=== PATIENT | male | born 1945 | race Caucasian/White ===

== ENCOUNTER 2024-06-06 00:50 | Inpatient (IN) | payer MEDICARE, OTHER ==
[~2024-06-06] VITALS: Ht 172.7 cm; Wt 70.3 kg
[2024-06-06] MEDS ORDERED: AMLO2.5T4 PO (01:25)
[2024-06-06] MEDS ORDERED: MULT-594 PO (01:25)
[2024-06-06] MEDS ORDERED: CYAN100T9 PO (01:25)
[2024-06-06] MEDS ORDERED: ZINC1CAP2 PO (01:25)
[2024-06-06] MEDS ORDERED: CHOL2000 PO (01:25)
[2024-06-06] MEDS ORDERED: ASPI81TA31 PO (01:25)
[2024-06-06] MEDS ORDERED: ASCO500C18 PO (01:25)
[2024-06-06] MEDS ORDERED: ONDA-104 PO (01:25)
[2024-06-06 02:00] LABS: BASOPHILS % (AUTO) 0.2 % (0.0-2.0); DIFFERENTIAL COMMENT 1; EOSINOPHILS # (AUTO) 0.2 K/uL (0.0-0.7); EOSINOPHILS % (AUTO) 1.2 % (0.0-7.0); HEMATOCRIT 33.7 % (36.7-47.1); HEMOGLOBIN 11.2 g/dL (12.5-16.3); LYMPHOCYTES # (AUTO) 0.9 K/uL (0.8-4.8); LYMPHOCYTES % (AUTO) 5.4 % (20.5-51.5); MEAN CORPUSCULAR HGB CONC 33 g/dL (32.5-36.3); MEAN CORPUSCULAR VOLUME 87.6 fL (73.0-96.2); MONOCYTES # (AUTO) 0.9 K/uL (0.1-1.30); MONOCYTES % (AUTO) 5.7 % (0.0-11.0); NEUTROPHILS # (AUTO) 14.4 K/uL (1.8-8.9); NEUTROPHILS % (AUTO) 87.5 % (38.5-71.5); PLATELET COUNT (AUTO) 244 K/uL (152-348); RED BLOOD CELL COUNT(AUTO) 3.85 MIL/uL (4.06-5.63); WHITE BLOOD COUNT (AUTO) 16.5 K/uL (3.6-10.2)
[2024-06-06 02:07] LABS: CARBON DIOXIDE 30 mmol/L (21-32); CHLORIDE 93 mmol/L (98-107); CREATININE 1.3 mg/dL (0.6-1.3); GLUCOSE 288 mg/dL (74-106); POTASSIUM 5.2 mmol/L (3.5-5.1); SODIUM SERUM 129 mmol/L (136-145); UREA NITROGEN, BLOOD 25 mg/dL (7-18)
[2024-06-06 02:23] LABS: ALANINE AMINOTRANSFERASE 29 U/L (16-63); ALBUMIN 3.3 g/dL (3.4-5.0); ALKALINE PHOSPHATASE 67 U/L (50-136); ASPARTATE AMINOTRANSFERASE 13 U/L (15-37); BILIRUBIN,DIRECT 0.2 mg/dL (0.0-0.2); BILIRUBIN,TOTAL 0.6 mg/dL (0.2-1.0); NT-PRO BNP 1487 pg/mL (0-125); TOTAL PROTEIN, SERUM 7.9 g/dL (6.4-8.2)
[2024-06-06 02:30] LABS: CALCIUM 9.4 mg/dL (8.5-10.1)
[2024-06-06 03:15] VITALS: BP 164/68
[2024-06-06] MEDS: NITROGLYCERIN OINT 1 GM PACKET TP ONE (03:15)
[2024-06-06] MEDS ORDERED: ACETAMINOPHEN 500 MG TABLET ONE (03:15)
[2024-06-06] MEDS ORDERED: NITROGLYCERIN OINT 1 GM PACKET TP ONE (03:15)
[2024-06-06] MEDS: ACETAMINOPHEN 500 MG TABLET PO ONE (03:15)
[2024-06-06] MEDS ORDERED: SACU1TAB PO (03:16)
[2024-06-06] MEDS ORDERED: CLOP75TA33 PO (03:16)
[2024-06-06] MEDS ORDERED: AMIO200T5 PO (03:16)
[2024-06-06] MEDS ORDERED: APIX5TAB PO (03:16)
[2024-06-06] MEDS ORDERED: FURO40TA5 PO (03:16)
[2024-06-06] MEDS ORDERED: POTA20TA83 PO (03:16)
[2024-06-06] MEDS ORDERED: OSEL75CA18 PO (03:16)
[2024-06-06] MEDS ORDERED: CARV3.122 PO (03:16)
[2024-06-06] MEDS: FUROSEMIDE 40 MG/4 ML VIAL IV ONE (03:30)
[2024-06-06] MEDS ORDERED: ACETAMINOPHEN 325 MG TABLET PO PRN (03:30)
[2024-06-06] MEDS ORDERED: MAGNESIUM HYDROXIDE 30 ML LIQUID UDC PO PRN (03:30)
[2024-06-06] MEDS ORDERED: ONDANSETRON 4 MG/2 ML VIAL IV PRN (03:30)
[2024-06-06] MEDS ORDERED: REMEDY ESSENTIAL ZINC PASTE 113 GM TP PRN (03:30)
[2024-06-06] MEDS ORDERED: NITROGLYCERIN OINT 1 GM PACKET TP PRN ×2 (03:30→05:45)
[2024-06-06] MEDS ORDERED: PANTOPRAZOLE SODIUM 40 MG TABLET.DR PO ONE (07:58)
[2024-06-06] MEDS: PANTOPRAZOLE SODIUM 40 MG TABLET.DR PO SCH (08:00)
[2024-06-06 08:03] LABS: BASOPHILS % (AUTO) 0.2 % (0.0-2.0); EOSINOPHILS % (AUTO) 0.4 % (0.0-7.0); HEMATOCRIT 33.8 % (36.7-47.1); HEMOGLOBIN 11.4 g/dL (12.5-16.3); LYMPHOCYTES # (AUTO) 1.2 K/uL (0.8-4.8); LYMPHOCYTES % (AUTO) 11.5 % (20.5-51.5); MEAN CORPUSCULAR HEMOGLOBIN 29.5 uug (23.8-33.4); MEAN CORPUSCULAR HGB CONC 34 g/dL (32.5-36.3); MEAN CORPUSCULAR VOLUME 87.4 fL (73.0-96.2); MONOCYTES % (AUTO) 9.5 % (0.0-11.0); NEUTROPHILS % (AUTO) 78.4 % (38.5-71.5); PLATELET COUNT (AUTO) 253 K/uL (152-348); RED BLOOD CELL COUNT(AUTO) 3.87 MIL/uL (4.06-5.63); WHITE BLOOD COUNT (AUTO) 10.2 K/uL (3.6-10.2)
[2024-06-06 08:08] LABS: DIFFERENTIAL COMMENT 1
[2024-06-06 08:26] LABS: CALCIUM 9.1 mg/dL (8.5-10.1); CARBON DIOXIDE 30 mmol/L (21-32); CHLORIDE 97 mmol/L (98-107); CREATININE 1.2 mg/dL (0.6-1.3); GLUCOSE 177 mg/dL (74-106); MAGNESIUM 2.2 mg/dL (1.8-2.4); NT-PRO BNP 2131 pg/mL (0-125); PHOSPHOROUS 4.4 mg/dL (2.5-4.9); POTASSIUM 4.3 mmol/L (3.5-5.1); SODIUM SERUM 134 mmol/L (136-145); UREA NITROGEN, BLOOD 21 mg/dL (7-18)
[2024-06-06] MEDS ORDERED: FUROSEMIDE 20 MG/2 ML VIAL ONE (09:17)
[2024-06-06] MEDS: FUROSEMIDE 20 MG/2 ML VIAL IV SCH (09:25)
[2024-06-06 10:13] VITALS: O2SAT 97
== END 2024-06-06 14:30 | DRG 291 ==
LOC: EDSEX 00:50 → ER 00:50 → MEDSURG3 04:20 → UNDOADMIN 04:20 → TRANSITION 06:17
PROVIDERS: ADMIT Nurse Practitioner Family; ATTEND Nurse Practitioner Acute Care
DX: I11.0 Hypertensive heart disease with heart failure (principal); I50.33 Acute on chronic diastolic (congestive) heart failure; K76.0 Fatty (change of) liver, not elsewhere classified; K21.9 Gastro-esophageal reflux disease without esophagitis; K42.9 Umbilical hernia without obstruction or gangrene; E78.5 Hyperlipidemia, unspecified; I44.7 Left bundle-branch block, unspecified; D64.9 Anemia, unspecified; Z79.02 Long term (current) use of antithrombotics/antiplatelets; I44.30 Unspecified atrioventricular block; E11.9 Type 2 diabetes mellitus without complications; Z95.2 Presence of prosthetic heart valve; Z86.19 Personal history of other infectious and parasitic diseases; Z79.899 Other long term (current) drug therapy; Z88.6 Allergy status to analgesic agent
CPT/HCPCS: 36415; 71045; 83735; 84100; 84484; 85025; 93307; A9150; G0378; J1940